=== PATIENT | female | born 1980 | race Caucasian/White ===

== ENCOUNTER 2022-07-28 22:53 | Emergency (ER) | payer MEDICAID ==
[~2022-07-28 22:53] MED LIST: NOCURR; PREN1TAB26 PO
== END 2022-07-28 23:45 | disposition left against medical advice (07) ==
LOC: EMS 23:00
DX: N93.9 Abnormal uterine and vaginal bleeding, unspecified (principal); Z53.21 Procedure and treatment not carried out due to patient leaving prior to being seen by health care provider